=== PATIENT | male | born 1985 | race Caucasian/White ===

== ENCOUNTER 2019-09-26 16:27 | Outpatient (CLI) | payer OTHER, SELFPAY ==
--- NOTE | ~2019-09-26 | XR_ITS ---
XR cervical spine 4-5V 09/26/2019 16:52 Indication: Neck pain Procedure: 4 view cervical spine Comparison: No prior studies for comparison. Findings: No fracture or traumatic malalignment. Straightening of cervical lordosis. No prevertebral soft tissue swelling. Vertebral body heights are maintained. There are mild uncinate degenerative adriana nges at multiple levels. Lung apices are normal. Odontoid process within normal limits. Impression: 1: Mild cervical spondylosis. Reviewed, dictated and finalized at location A. Impression: 1: Mild cervical spondylosis.
== END 2019-09-26 16:28 | disposition home or self-care (01) ==
PROVIDERS: Visit Provider Nurse Practitioner
DX: M47.22 Other spondylosis with radiculopathy, cervical region (principal)
CPT/HCPCS: 72050

== ENCOUNTER 2019-09-27 10:44 | Outpatient (CLI) | payer OTHER, SELFPAY ==
--- NOTE | ~2019-09-27 | MR_ITS ---
EXAMINATION: MR cervical spine wo/w con DATE: 09/27/2019 12:02 INDICATION: Cervical radiculopathy. TECHNIQUE: Magnetic resonance imaging (MRI) of the cervical spine was performed without and with 20 m L MultiHance intravenous contrast. Sequences included sagittal and axial T2-weighted FSE, sagittal T2 -weighted FS FSE, and sagittal and axial T1-weighted FSE. Postcontrast sequences included sagittal an d axial T1-weighted FS FSE. COMPARISON: Cervical spine radiographs 09/26/2019 FINDINGS: There is 7 degrees levocurvature of cervicothoracic spine. Vertebral body heights are charlotte l. There is mildly decreased disc height at C5-C6. The spinal cord signal intensity is normal. The fo llowing disc levels are specifically discussed: C2-C3: The disc does not extend beyond the endplate margin. There is no uncovertebral joint osteoarth ritis. There is mild bilateral facet joint osteoarthritis. There is no neural foraminal stenosis. The re is no central canal stenosis. C3-C4: The disc is bulging. There is mild bilateral uncovertebral joint osteoarthritis. There is no f acet joint osteoarthritis. There is mild bilateral neural foraminal stenosis. There is mild central c anal stenosis. C4-C5: The disc does not extend beyond the endplate margin. There is no uncovertebral joint osteoarth ritis. There is no facet joint osteoarthritis. There is no neural foraminal stenosis. There is no avelino tral canal stenosis. C5-C6: The disc is bulging. There is mild right and moderate left uncovertebral joint osteoarthritis. There is mild bilateral facet joint osteoarthritis. There is mild bilateral neural foraminal stenosi s. There is mild central canal stenosis. C6-C7: The disc is bulging. There is mild bilateral uncovertebral joint osteoarthritis. There is no f acet joint osteoarthritis. There is no neural foraminal stenosis. There is no central canal stenosis. C7-T1: There is a right foraminal extrusion. There is mild right uncovertebral joint osteoarthritis. There is mild bilateral facet joint osteoarthritis. There is moderate right neural foraminal stenosis . There is mild central canal stenosis. IMPRESSION: 1. Moderate right neural foraminal stenosis at C7-T1. Otherwise mild cervical spondylosis. Reviewed, dictated and finalized at location A. IMPRESSION: 1. Moderate right neural foraminal stenosis at C7-T1. Otherwise mild cervical s pondylosis.
[2019-09-27 11:18] LABS: Estimated Glomerular Filt Rate > 60
== END 2019-09-27 10:45 | disposition home or self-care (01) ==
LOC: ANHIMG 10:45
DX: M54.12 Radiculopathy, cervical region (principal); M48.03 Spinal stenosis, cervicothoracic region; M47.812 Spondylosis without myelopathy or radiculopathy, cervical region
CPT/HCPCS: 36415; 72156; A9577

== ENCOUNTER 2019-11-07 12:30 | Outpatient (RCR) | payer OTHER, SELFPAY ==
--- NOTE | 2019-10-17 09:12 | PTOPEVAL ---
Thank you for referring Garcia Rodriguez to [facility]. Please review, sign, date and return this plan of care CHAITANYA. Pt referred to physical therapy due to cervical impairments with bulging disc and foraminal narrowing. He would benefit from a trial of PT to address UE symptoms, provide skilled teaching for HEP and trial modalities to improve UE symptoms. Recommend additional PT 2x/wk x 3 wk. I agree with and certify that the following plan of care is medically necessary. Referring Physician Date Attending Provider: Selma Swartz, HANDLE MACHINE OPERATOR Referring Provider: *PT Outpatient Evaluation Start: 10/17/19 08:03 Freq: Status: Active Protocol: Document 10/17/19 08:05 MATEO (Rec: 10/17/19 08:41 MATEO [id number]) Therapy Assessment Status Assessment Status Assessment Status Evaluation Outpatient Past Medical History Past Medical History Source of Past Medical History Patient Cardiovascular History Hx Hypertension Yes Gastrointestinal History Hx Gall Bladder Disease Yes: gall bladder removed Musculoskeletal History Hx Back Injury Yes Hx Back Pain Yes: slipped disc low back Endocrine History Hx Diabetes Yes Evaluation Information Problem Diagnosis neuroal foraminal stenosis of cervical spine Onset 1 month ago Cause unknown cause Additional Evaluation Detail FINDINGS: There is 7 degrees levocurvature of cervicothoracic spine. C3-C4: The disc is bulging. There is mild bilateral uncovertebral joint osteoarthritis. There is mild central canal stenosis. C5-C6: The disc is bulging. There is mild right and moderate left uncovertebral joint osteoarthritis. There is mild bilateral facet joint osteoarthritis. There is mild bilateral neural foraminal stenosis. There is mild central canal stenosis. C6-C7: The disc is bulging. There is mild bilateral uncovertebral joint osteoarthritis. C7-T1: There is a right foraminal extrusion. There is mild right uncovertebral joint osteoarthritis. There is mild bilateral facet join
--- NOTE | 2019-11-07 14:08 | PTOPEVAL ---
Thank you for referring Garcia Rodriguez to [facility]. Please review, sign, date and return this plan of care CHAITANYAlanie Garcia has received 7 therapy visits from 10/17/19-10/31/19 to address neck pain and radiating right UE symptoms. He demonstrates limited progress with therapy for improved pain, symptoms or strength. Limited progress towards therapy goals. Recommend pt to return to the doctor for additional testing. DC skilled therapy at this time. I agree with and certify that the following plan of care is medically necessary. Referring Physician Date Attending Provider: Selma Swartz, STAFF SOFTWARE ENGINEER PT Discharge Summary *PT Outpatient Evaluation Start: 10/17/19 08:03 Freq: Status: Active Protocol: Document 11/07/19 12:35 MATEO (Rec: 11/07/19 13:17 CAP [id number]) Therapy Assessment Status Assessment Status Assessment Status Re-evaluation Evaluation Information Problem Diagnosis neuroal foraminal stenosis of cervical spine Onset 1 month ago Cause unknown cause Additional Evaluation Detail FINDINGS: There is 7 degrees levocurvature of cervicothoracic spine. C3-C4: The disc is bulging. There is mild bilateral uncovertebral joint osteoarthritis. There is mild central canal stenosis. C5-C6: The disc is bulging. There is mild right and moderate left uncovertebral joint osteoarthritis. There is mild bilateral facet joint osteoarthritis. There is mild bilateral neural foraminal stenosis. There is mild central canal stenosis. C6-C7: The disc is bulging. There is mild bilateral uncovertebral joint osteoarthritis. C7-T1: There is a right foraminal extrusion. There is mild right uncovertebral joint osteoarthritis. There is mild bilateral facet joint osteoarthritis. There is moderate right neural foraminal stenosis. Subjective Information Reports limited relief of UE Query Text:As Reported By Patient/ radiating symptoms with Family therapy. Reports continued
== END 2019-11-08 08:45 | disposition home or self-care (01) ==
LOC: ANHPT 12:30
PROVIDERS: Visit Provider Nurse Practitioner
DX: M48.02 Spinal stenosis, cervical region (principal)
CPT/HCPCS: 97012; 97110; 97140; 97161